=== PATIENT | male | born 1985 | race Caucasian/White ===

== ENCOUNTER → 2023-05-06 13:15 | Outpatient (BNVA) | payer SELFPAY | PROVIDERS: Visit Provider Physician Assistant Medical | DX: Z02.79 Encounter for issue of other medical certificate (principal) ==

== ENCOUNTER 2025-01-18 19:30 | Emergency (ER) | payer BC, SELFPAY ==
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
[2025-01-18 19:33] VITALS: BP 151/88; PULSE 65; RESP 18; TEMP 36.7; O2SAT 96; BMI 27.5
--- NOTE | 2025-01-18 19:41 | ECG_ITS ---
Test Reason : ELECTROCUTED Blood Pressure : */* mmHG Vent. Rate : 67 BPM Atrial Rate : 67 BPM P-R Int : 148 ms QRS Dur : 92 ms QT Int : 400 ms P-R-T Axes : 35 40 26 degrees QTcB Int : 422 ms Normal sinus rhythm with sinus arrhythmia Normal ECG No previous ECGs available Referred By: Sisi Durbin Electronically Signed By: BETH LORWY MD
[2025-01-19] VITALS: BP 145/93; PULSE 68; RESP 18; TEMP 36.4
[2025-01-19] MEDS: Fluorescein Sodium STRIP 1 STRIP EYE-LEFT (02:03)
[2025-01-19] MEDS: Tetracaine HCl/PF 0.5% Oph Sol 4 ML DROPS 1 DROP EYE-BOTH (02:03)
[2025-01-19 02:16] VITALS: BP 145/93; PULSE 68; RESP 18; TEMP 36.4; O2SAT 95
== END 2025-01-19 02:17 | disposition home or self-care (01) ==
PROVIDERS: Emergency Provider Emergency Medicine Emergency Medical Services
DX: T79.4XXA Traumatic shock, initial encounter (principal); W31.89XA Contact with other specified machinery, initial encounter; H53.8 Other visual disturbances; M62.838 Other muscle spasm; M25.511 Pain in right shoulder; M79.601 Pain in right arm; J45.909 Unspecified asthma, uncomplicated; R05.9 Cough, unspecified; K44.9 Diaphragmatic hernia without obstruction or gangrene; Y93.89 Activity, other specified; Y92.59 Other trade areas as the place of occurrence of the external cause; Y99.0 Civilian activity done for income or pay
CPT/HCPCS: 93005; 99283; 99284

== ENCOUNTER → 2025-01-18 19:41 | Outpatient (BNV) | payer BC, SELFPAY | PROVIDERS: Emergency Provider Emergency Medicine Emergency Medical Services; Visit Provider Internal Medicine Cardiovascular Disease | DX: M79.601 Pain in right arm (principal) | CPT/HCPCS: 93010 ==

== ENCOUNTER → 2025-01-21 10:25 | Outpatient (BNVA) | payer OTHER, SELFPAY | PROVIDERS: Visit Provider Physician Assistant Medical | DX: T75.4XXA Electrocution, initial encounter (principal); W86.1XXA Exposure to industrial wiring, appliances and electrical machinery, initial encounter | CPT/HCPCS: 99202 ==

== ENCOUNTER → 2025-02-10 09:57 | Outpatient (BNVA) | payer OTHER, SELFPAY | PROVIDERS: Visit Provider Physician Assistant Medical | DX: M54.2 Cervicalgia (principal); T75.4XXD Electrocution, subsequent encounter; W86.1XXD Exposure to industrial wiring, appliances and electrical machinery, subsequent encounter | CPT/HCPCS: 99213 ==

== ENCOUNTER → 2025-02-17 10:32 | Outpatient (BNVA) | payer OTHER, SELFPAY | PROVIDERS: Visit Provider Physician Assistant Medical | DX: M54.2 Cervicalgia (principal); T75.4XXD Electrocution, subsequent encounter; W86.1XXD Exposure to industrial wiring, appliances and electrical machinery, subsequent encounter | CPT/HCPCS: 99213 ==

== ENCOUNTER 2025-02-27 19:49 | Outpatient (REF) | payer OTHER, SELFPAY ==
--- OUTSIDE RECORDS SUMMARY | 2012-05-05 06:12 | XMS_ITS | Continuity of Care Document ---
Author Organization [facility] [facility] Address [place] [address] [address] [address] Phone Care Team Providers Care Acid Tank Liner Name Role Phone Napoleon Stroud MD Unavailable Unavailable Medications Medication Instructions Dosage Effective Dates (start - stop) Status Comments [place] 5 mg-325 mg tablet take 1 tablet [...] Diagnoses Date Provider Providers Copied on Encounter [employer] [facility], [address] [address], [place], [place], [id number] , [place] [phone] [facility] Block No Information 2 Maximus Bender. [address] [place], [place], [id number], . tel:[phone] Offic/outpt E m Estab Low Comp [employer] [facility], [address] [address], [place], [address] , tel:[phone] [facility] 1st Care rib pain (chief complaint) Rib injury 2 Maximus Bender. [address] [place], [place], [id number], [place]. [phone] [facility], [address] [address], [place], [id number] , tel:[phone] [facility] Family Practice EST (chief complaint) Routine Medical Exam 2 Yoselin Francois. [address] [place], [place], [id number], [place]. [phone] [facility], [address] [address], [place], [place], [id number] , [place] tel:[phone] [facility] Occupational Medicine physical (chief complaint) Screening Viral Dis NecScreening for other specified conditionScree jocelyne for deficiency anemiaNephropa thy screenRoutine medical exam No Information Offic/outpt E m New Mod S [facility], [address] [address], [place], [place], [id number] , tel:[phone] Care STD check (chief complaint) Skin lesion 1 Scot Marcial. [address] [place] [address], [id number], [place]. tel:[phone] Referring Provider: Aniket Velasco, [address] [place] [address], [address] . tel:[phone] Family History Family Member Type Diagnosis Age At Onset No Information Payers Payer name Insurance type Covered green party ID Authoralondraa tilily(s) [facility] [id number] Social History Type Description Quantity Date Captured [...]
--- NOTE | ~2025-02-27 | MR_ITS ---
EXAMINATION: MR BRAIN WITHOUT IV CONTRAST HISTORY: nausea, CHAPIN and vision changes TECHNIQUE: Sagittal T1, and axial T1, FLAIR, T2, gradient echo, and diffusion weighted MR images of the brain were obtained. COMPARISON: There are no prior studies available for comparison. FINDINGS: The pituitary is normal in size. The cerebellar tonsils are normally located. The brain parenchyma is unremarkable, demonstrating normal ding/white differentiation. No foci of abnormal signal intensity are identified. The ventricular system is normal in size and configuration. There is no mass effect or midline shift. No intra or extra-axial fluid collections are identified. There are no foci of restricted diffusion. Normal vascular flow voids are noted in the basilar and carotid arteries. The visualized paranasal sinuses are clear. MR/MR head/brain wo con IMPRESSION: Unremarkable MRI of the brain without contrast. Electronically signed by: Nadir Funes MD 03/01/2025 07:58 AM EDT
--- OUTSIDE RECORDS SUMMARY | 2025-02-27 19:53 | XMS_ITS ---
Author Name [facility] Organization Unknown Care Team Organization Name Specialty Phone Email Start Date End [facility]
--- OUTSIDE RECORDS SUMMARY | 2025-02-27 19:53 | XMS_ITS | Clinical Summary ---
Author Organization [employer] Address [address] [place] [address] 7 [place] [address] Care Team Providers Care Theatre Program Director Name Role Phone Unavailable Primary Care Provider Unavailabl e Encounters Date Type Department Care Team Description 12/24/2024 Telephone [facility] [address] [place], [place] [phone] Sebastian Garcia MD new pt from Last 3 Months Social History Tobacco Use Types Packs/Day Years Used Date Smoking Tobacco: Never Assessed Sex and Gender Information Value Date Recorded Sex Assigned at Not on file Legal Sex Male 3:27 PM EDT Gender Identity Not on file Sexual Orientation Not on file Plan of Treatment Upcoming Encounters Date Type Department Care Team ([facility] st Contact Info) Description 03/26/2025 9:00 AM EDT Office Visit [facility] [address] [place] [address] Farrah Ortiz FNP [address] [place], [place] [phone] Health Maintenance Due Date Last Done Comments Depression Screening 1985 HIV Screening 1985 Lipid Panel 1985 SDOH Screening 1985 Disability Screening 1985 Alcohol/Substance Use Screening 1997 Tobacco Screening 1997 Family Planning (PISQ) 2000 HPV Vaccines (1 - Male 3-dos e series) 2000 Hepatitis C Screening 10/09/2003 DTaP/Tdap/Td Vaccines (1 - Tdap) 2004 Hepatitis B Vaccines (1 of 3 - 19+ 3-dose series) 2004 COVID-19 Vaccine (1 - 2023-2 5 season) 2025 Influenza Vaccine (#1) 2025 Zoster Vaccines (1 of 2) 10/09/2035 RSV Patients and Pa tients Aged 60 years or older (1 - 1-dose 75+ series) 2060 HIB Vaccines Aged Out No longer eligi ble based on patient's age to complete this topic Hepatitis A Vaccines Aged Out No long er eligible based on patient's age to complete this topic IPV Vaccines Aged Out No longer eligi ble based on patient's age to complete this topic Meningococcal B Vaccine Aged Out No l onger eligible based on patient's age to complete this topic Meningococcal Vaccine Aged Out No amita keyonna eligible based on patient's age to complete this topic Pneumococcal Vaccine: Pediat rics (0 to 5 Years) and At-Risk Patients (6 to 49) Years Aged Out No longer eligible b ased on patient's age to complete this topic RSV under 20 months Aged Out No longe r eligible based on patient's age to complete this topic Rotavirus Vaccines Aged Out No longer eligible based on patient's age to complete this topic Insurance [facility] PPO
== END 2025-02-27 19:50 | disposition home or self-care (01) ==
LOC: HO.MRI 19:49
PROVIDERS: Visit Provider Internal Medicine
DX: R11.0 Nausea (principal)
CPT/HCPCS: 70551

== ENCOUNTER → 2025-02-27 20:04 | Outpatient (BNV) | payer OTHER, SELFPAY | PROVIDERS: Visit Provider Radiology Diagnostic Radiology | DX: R51.9 Headache, unspecified (principal); R11.10 Vomiting, unspecified; H53.8 Other visual disturbances | CPT/HCPCS: 70551 ==

== ENCOUNTER → 2025-03-10 10:23 | Outpatient (BNVA) | payer OTHER, SELFPAY | PROVIDERS: Visit Provider Emergency Medicine | DX: T75.4XXD Electrocution, subsequent encounter (principal); W86.1XXD Exposure to industrial wiring, appliances and electrical machinery, subsequent encounter; R42 Dizziness and giddiness | CPT/HCPCS: 99214 ==

== ENCOUNTER 2025-03-29 10:04 | Outpatient (REF) | payer OTHER, SELFPAY ==
--- OUTSIDE RECORDS SUMMARY | 2025-03-26 09:00 | XMS_ITS | Encounter Summary ---
Author Organization [email or web address] Address [address] [facility] [address]t [place] [address] Care Team Providers Care Leasing Representative Name Role Phone Farrah Ortiz Primary Care Provider [phone] Reason for Referral * Imaging (Routine) - Authorized Specialty Diagnoses / Procedures Referred By Contac t Referred To Contact Radiology Diagnoses RUQ pain Procedures US Abdomen Limited Farrah Ortiz FNP [address] [place] [address] Phone: tel: fax: [address] Phone: tel: fax: Referral ID Status Reason Start Date Expiration Date V isits Requested Visits Authorized [id number] Authorized 03/26/2025 03/26/2026 1 1 * Consultation (Routine) - Pending Review Specialty Diagnoses / Procedures Referred By Contac t Referred To Contact General Surgery Diagnoses Umbilical hernia without obstruction and without gangrene Farrah Ortiz FNP [address] [place] [address] Phone: tel: fax: Referral ID Status Reason Start Date Expiration Date Visits Requested Visits Authorized [id number] Pending Review Specialty Services Required 03/26/2025 03/26/2026 1 1 Encounter Details Date Type Department Care Team (Late st Contact Info) Description 03/26/2025 9:00 AM EDT Office Visit [facility]EDS [address] [place] [address] AngelFarrah, ASSIST[employer] [address] [place] [address] Healthcare maintenance (Primary Dx); Umbilical hernia without obstruction and without gangrene; RUQ pain Social History Tobacco Use Types Packs/Day Years Used Date Smoking Tobacco: Never Assessed Depression Answer Date Recorded Patient Health Questionnaire-9 Score 1 03/26/2025 Patient Health Questionnaire-9 Score 1 03/26/2025 Last PHQ-9: Questionnaire Data Not on file 1 Housing Stability Answer Date Recorded What is your housing situation today? I have flower kidd 03/18/[address] you li ve. Do you have problems with any of the following? None of the above 03/18/2025 Food Insecurity Answer Date Recorded Within the past 12 months, y ou worried that your food would run out before you got money to buy more: Never True 03/18/2025 Within the past 12 months,th e food you bought just didn't last and you didn't have enough money to get more: Never True Transportation Answer Date Recorded In the past 12 months, has l ack of transportation kept you from medical appts, meetings, work or from getting things needed for daily living? No 03/18/2025 Utilities Answer Date Recorded In the past 12 months, has t he electric, gas, oil or water company threatened to shut off services in your home? No 03/18/2025 Depression Answer Date Recorded Patient Health Questionnaire-2 Score 1 03/26/2025 Internet Access Answer Date Recorded Internet Access Q1 Yes 03/18/2025 Internet Access Q2 Not on file 03/18/2025 Sex and Gender Information Value Date Recorded Sex Assigned at Male 03/26/2025 8:44 AM EDT Legal Sex Male 3:27 PM EDT Gender Identity Male 03/26/2025 8:44 AM EDT Sexual Orientation Straight 03/26/2025 8: 44 AM EDT documented as of this encounter Last Filed Vital Signs Vital Sign Reading Time Taken Comments Blood Pressure 130/89 03/26/2025 8:59 AM EDT Pulse 76 03/26/2025 8:59 AM EDT Temperature 37.2 C (98.9 F) 03/26/2025 8:59 AM EDT Respiratory Rate 20 03/26/2025 8:59 AM EDT Oxygen Saturation 98% 03/26/2025 8:59 AM EDT Inhaled Oxygen Concentration - - Weight 96.1 kg (211 lb 12.8 oz) 03/26/2025 8:59 AM EDT Height 184 cm (6' 0.44 ) 03/26/2025 8:59 AM EDT Body Mass Index 28.38 03/26/2025 8:59 AM EDT documented in this encounter Functional Status * Over the past 2 weeks, how often have you been bothered by any of the following problems? Question Answer Date of Assessment Author Patient Health Questionnaire-2 Score 1 08/2024 9:01 AM EDT Go Romero [place] * Little interest or pleasure in doing things Answer Date of Assessment Author Several days 03/26/2025 9:01 AM EDT Go Romero MA * Feeling down, depressed, or hopeless Answer Date of Assessment Author Not at all 03/26/2025 9:01 AM EDT Go Romero MA * Trouble falling or staying asleep, or sleeping too much Answer Date of Assessment Author Not at all 03/26/2025 9:01 AM EDT Go Romero MA * Feeling tired or having little energy Answer Date of Assessment Author Not at all 03/26/2025 9:01 AM EDT Go Romero MA * Poor appetite or overeating Answer Date of Assessment Author Not at all 03/26/2025 9:01 AM EDT Go Romeor [place] * Feeling bad about yourself - or that you are a failure or have let yourself or your family down Answer Date of Assessment Author Not at all 03/26/2025 9:01 AM EDT Go Romero [place] * Trouble concentrating on things, such as reading the newspaper or watching television Answer Date of Assessment Author Not at all 03/26/2025 9:01 AM EDT Go Romero [place] * Moving or speaking so slowly that other people could have noticed? Or the opposite - being so fidgety or restless that you have been moving around a lot more than usual. Answer Date of Assessment Author Not at all 03/26/2025 9:01 AM Go Mcneill MA * Thoughts that you would be better off or hurting yourself in some way Answer Date of Assessment Author Not at all 03/26/2025 9:01 AM Go Mcneill MA * Patient Health Questionnaire-9 Score Answer Date of Assessment Author 1 03/26/2025 9:01 AM Go Mcneill MA * How difficult have these problems made it for you to do your work, take care of things at home, or get along with other people? Answer Date of Assessment Author Somewhat difficult 03/26/2025 9:01 AM Go Dnuham [place] documented as of this encounter Plan of Treatment Upcoming Encounters Date Type Department Care Team (Late st Contact Info) Description 05/10/2025 9:15 AM EST Office Visit [facility] [address] [place] [address] Farrah Ortiz, [employer] [address] [place] [address] Scheduled Orders Name Type Priority Associated Diagnoses Orde r Schedule Lipid Panel, Standard Lab Routine Healthcare maintenance Expected: 03/26/2025 (Approximate), Expires: 03/26/2026 Hemoglobin A1c Lab Routine Healthcare maintenance Expected: 03/26/2025 (Approximate), Expires: 03/26/2026 TSH with Reflex to Free T4 Lab Routine Healthcare maintenance Expected: 03/26/2025 (Approximate), Expires: 03/26/2026 Comprehensive Metabolic Panel Lab Routine Healthcare maintenance Expected: 03/26/2025 (Approximate), Expires: 03/26/2026 CBC auto differential Lab Routine Healthcare maintenance Expected: 03/26/2025, Expires: 03/26/2026 Hepatitis C Viral RNA, Quantitative, Real-Time PCR Lab Routine Healthcare maintenance Expected: 03/26/2025 (Approximate), Expires: 03/26/2026 RPR (Monitor) with Reflex to Titer Lab Routine Healthcare maintenance Expected: 03/26/2025 (Approximate), Expires: 03/26/2026 HIV-1/2 Antigen and Antibodies, Fourth Generation, with Reflexes Lab Routine Healthcare maintenance Expected: 03/26/2025 (Approximate), Expires: 03/26/2026 Chlamydia/Trichomonas/Nei sseria gonorrhoeae, PCR, Urine Lab Routine Healthcare maintenance Expected: 03/26/2025 (Approximate), Expires: 03/26/2026 Urinalysis with reflex microscopic Lab Routine Healthcare maintenance Expected: 03/26/2025, Expires: 03/26/2026 US Abdomen Limited Imaging Routine RUQ pain Expected: 03/26/2025, Expires: 03/26/2026 Scheduled Referrals Name Type Priority Associated Diagnoses Orde r Schedule Referral to General Surgery Outpatient Referral Routine Umbilical hernia without obstruction and without gangrene Expected: 03/26/2025 (Approximate), Expires: 03/26/2026 documented as of this encounter Visit Diagnoses Diagnosis Healthcare maintenance- Primary Umbilical hernia without obstruction and without gangrene RUQ pain Abdominal pain, right upper quadrant documented in this encounter Additional Health Concerns Assessment Noted Time PHQ-9 Depression Total Score: 1 03/26/20 25 9:01 AM EDT documented as of this encounter Care Teams Leasing Representative Relationship Specialty Start Date End Date Farrah Ortiz FNP [address] [place] [id number] PCP - General Family Medicine 03/26/25 documented as of this encounter
--- OUTSIDE RECORDS SUMMARY | 2025-03-29 11:44 | XMS_ITS | Encounter Summary ---
Author Organization [employer] Address [address] [place] [address] Care Team Providers Care Enterprise Applications Manager Name Role Phone Unavailable Primary Care Provider Unavailabl e Reason for Visit * Reason Onset Date Comments Chart Prep 03/25/2025 Encounter Details Date Type Department Care Team ([facility] st Contact Info) Description 03/25/2025 Telephone [facility] [address] [place], [place] [phone] Farrah Ortiz FNP [address] [place], [place] [phone] Chart Prep Social History Tobacco Use Types Packs/Day Years [...] AM EDT documented as of this encounter Miscellaneous Notes * Telephone Encounter - Madison Newby [place] - 03/25/2025 2:25 PM EDT Chart Prep Labs: not applicable Images: not applicable Referrals: not applicable Vaccines due: due Screenings: STI screening Overdue care gaps: SBIRT, SDOH, PHQ-9, Disability screen, and Tobacco documented in this encounter Plan of Treatment Upcoming Encounters Date Type Department Care Team (Late st Contact Info) Description 05/10/2025 9:15 AM EST Office Visit [facility] [address] [place] [address] Farrah Ortiz FNP [address] [place] [address] documented as of this encounter Visit Diagnoses Not on filedocumented in this encounter
--- OUTSIDE RECORDS SUMMARY | 2025-03-29 11:44 | XMS_ITS | Clinical Summary ---
Author Organization [employer] Address [address] [facility] [address]t [place] [address] Care Team Providers Care Gear Generator Set Up Operator Name Role Phone Farrah Ortiz Primary Care Provider [phone] Medications gabapentin (Neurontin) 100 MG capsule TAKE 1 CAPSULE BY MOUTH EVERY NIGHT AT BEDTIME FOR 1 WEEK THEN MAY INCREASE TO 2 EVERY NIGHT AT BEDTIME THEN MAX OF 3 CAPSULES AFTER 02/10/2025 Active indomethacin (Indocin) 25 MG capsule TAKE 1 CAPSULE BY MOUTH TWICE DAILY WITH FOOD OR MILK NEEDED FOR MODERATE PAIN 03/10/2025 Active Encounters Date Type Department Care Team Description 03/26/2025 9:00 AM EDT Office Visit [facility] [address] [place], [place] [phone] Farrah Ortiz FNP Healthcare maintenance (Primary Dx); Umbilical hernia without obstruction and without gangrene; RUQ pain 03/26/2025 Travel 03/25/2025 Telephone [facility] [address] [place] [address] Farrah Ortiz FNP Chart Prep 03/18/2025 Patient Outreach [facility] [address] [place], [place] [phone] Sebastian Garcia MD Pre-visit Planning (SDOH screening negative and Tobacco screening negative) from Last 3 Months Social History Tobacco [...] Orientation Straight 03/26/2025 8: 44 AM EDT Last Filed Vital Signs Vital Sign Reading Time Taken Comments Blood Pressure 130/89 03/26/2025 8:59 AM EDT Pulse 76 03/26/2025 8:59 AM EDT Temperature 37.2 C (98.9 F) 03/26/2025 8:59 AM EDT Respiratory Rate 20 03/26/2025 8:5 9 AM EDT Oxygen Saturation 98% 03/26/2025 8:59 AM EDT Inhaled Oxygen Concentration - - Weight 96.1 kg (211 lb 12.8 oz) 03/26/2025 8:59 AM EDT Height 184 cm (6' 0.44 ) 03/26/2025 8:59 AM EDT Body Mass Index 28.38 03/26/2025 8:59 AM EDT Plan of Treatment Upcoming Encounters Date Type Department Care Team (Late st Contact Info) Description 05/10/2025 9:15 AM EST Office Visit [facility] [address] [place] [address] Farrah Ortiz, KORI [address] [place] [address] Health Maintenance Due Date Last Done Comments HIV Screening 1985 Lipid Panel 1985 Tobacco Screening 1997 Family Planning (PISQ) 2000 HPV Vaccines (1 - Male 3-dos e series) 2000 Hepatitis C Screening 10/09/2003 DTaP/Tdap/Td Vaccines (1 - Tdap) 2004 Hepatitis B Vaccines (1 of 3 - 19+ 3-dose series) 2004 COVID-19 Vaccine (1 - 2023-2 5 season) 2025 Influenza Vaccine (#1) 2025 Alcohol/Substance Use Screening 03/26/2026 03/26/2025 Depression Screening 03/26/2026 03/26/2025, 03/26/2025 Disability Screening 03/26/2026 03/26/2025 SDOH Screening 03/26/2026 03/26/2025 Zoster Vaccines (1 of 2) 10/09/2035 RSV Patients and Patients Aged 60 years or older (1 - [...] age to complete this topic Pneumococcal Vaccine: Pediatrics (0 to 5 Years) and At-Risk Patients (6 to 49) Years Aged Out No longer eligible b ased on patient's age to complete this topic RSV under 20 months Aged Out No longe r eligible based on patient's age to complete this topic Rotavirus Vaccines Aged Out No longer eligible based on patient's age to complete this topic Insurance [employer] PPO Care Teams Gear Generator Set Up Operator Relationship Specialty Start Date End Date Farrah Ortiz FNP [address] [place] [address] [place] [id number] PCP - General Family Medicine 03/26/25
--- OUTSIDE RECORDS SUMMARY | 2025-03-29 11:44 | XMS_ITS | Encounter Summary ---
Author Organization [employer] Address [address] [place] [address] Care Team Providers Care Investigative Shopper Name Role Phone Farrah Ortiz KORI Primary Care Provider [phone] Encounter Details Date Type Department Care Team (Latest Contact Info) Description 03/26/2025 Travel Social History Tobacco Use Types Packs/Day Years Used Date Smoking Tobacco: Never Assessed Depression Answer Date Recorded Patient Health Questionnaire-9 Score 1 03/26/2025 Patient Health Questionnaire-9 Score 1 03/26/2025 Last PHQ-9: Questionnaire Data Not on file 1 Housing Stability Answer Date Recorded What is your housing situation today? I have flower sing 03/18/[address] you li [...] AM EDT documented as of this encounter Functional Status * Over the [...] AM EDT Go Romero MA * Feeling bad about yourself - [...] 9:01 AM EDT Go Romero MA * Thoughts that you would be better off or hurting yourself in some way Answer Date of Assessment Author Not at all 03/26/2025 9:01 AM EDT Go Romero [place] * Patient Health Questionnaire-9 Score Answer Date of Assessment Author 1 03/26/2025 9:01 AM EDT Go Romero MA * How difficult have these problems made it for you to do your work, take care of things at home, or get along with other people? Answer Date of Assessment Author Somewhat difficult 03/26/2025 9:01 AM EDT Go Degroot [place] documented as of this encounter Plan of Treatment Upcoming Encounters Date Type Department Care Team (Late st Contact Info) Description 05/10/2025 9:15 AM EST Office Visit [facility] [address] [place] [address] Farrah Ortiz FNP [address] [place] [address] documented as of this encounter Visit Diagnoses Not on filedocumented in this encounter Additional Health Concerns Assessment Noted Time PHQ-9 Depression Total Score: 1 03/26/20 9:01 AM EDT documented as of this encounter Care Teams Investigative Shopper Relationship Specialty Start Date End Date Farrah Ortiz FNP [address] [place] [address] PCP - General Family Medicine 03/26/25 documented as of this encounter
[2025-03-29 14:42] LABS: MANUAL DIFF FLAG NO
[2025-03-29 14:52] LABS: Hematocrit 45.0 % (42.0-52.0); Hemoglobin 15.3 g/dl (14.0-18.0); Imm Gran Abs Auto 0.02 X10*3/uL (0.00-0.03); Imm Gran Pct Auto 0.3 % (0.0-0.4); Lymphocytes Absolute Auto 3.1 X10*3/uL (1.2-4.9); Mean Corpuscular HGB Conc 34.0 g/dl (31.0-36.0); Mean Corpuscular Hemoglobin 27.8 pg (27.0-33.0); Mean Corpuscular Volume 81.8 fL (80.0-98.0); NRBC Abs Auto 0.000 X10*3/uL (0.0-0.012); NRBC Pct Auto 0.0 /100WBC (0.0-0.2); Platelet Count 340 X10*3/uL (160-400); Red Blood Count 5.50 X10*6/uL (4.60-5.80); White Blood Count 7.1 X10*3/uL (4.8-10.8)
[2025-03-29 14:54] LABS: Appearance Urine Clear; Glucose Urine UA Negative (Negative); PH 5.5 (5.0-9.0); Specific Gravity - Urine 1.015 (1.005-1.025)
[2025-03-29 15:16] LABS: Hemoglobin A1C 152.1238 umol/L
[2025-03-29 15:21] LABS: Alanine Aminotransferase 30 U/L (0-40); Albumin Level 4.6 g/dL (3.5-5.0); Alkaline Phosphatase 55 U/L (39-117); Anion Gap 9 (12-20); Aspartate Amino Transferase 30 U/L (5-37); Blood Urea Nitrogen 13 mg/dL (9-16); Calcium 9.5 mg/dL (8.4-10.2); Carbon Dioxide 26 mmol/L (22-29); Chloride 106 mmol/L (96-108); Cholesterol 249 mg/dL (<200); Estimated Glomerular Filt Rate > 60; HDL Cholesterol 31 mg/dL (>40); Potassium 4.2 mmol/L (3.3-5.1); Sodium 137 mmol/L (135-145); Total Protein 7.5 g/dL (6.5-8.0); Triglycerides 273 mg/dL (<150)
[2025-03-29 16:43] LABS: CT PCR Urine NOT DETECTED (Not Detect.); NG PCR Urine NOT DETECTED (Not Detect.)
[2025-03-30 08:10] LABS: HIV Num 1 0.04 S/CO (0.00-0.99)
[2025-03-31 20:08] LABS: HCV Log PCR <1.18 NOT DETECTED Log IU/mL (NOT DETECTED); HepC Viral Load <15 NOT DETECTED IU/mL (NOT DETECTED)
== END 2025-03-29 10:05 | disposition home or self-care (01) ==
LOC: HO.CHCLDS 10:04
PROVIDERS: Visit Provider Registered Nurse
DX: Z00.00 Encounter for general adult medical examination without abnormal findings (principal); Z13.6 Encounter for screening for cardiovascular disorders; Z13.1 Encounter for screening for diabetes mellitus; Z11.4 Encounter for screening for human immunodeficiency virus [HIV]
CPT/HCPCS: 80053; 80061; 81003; 83036; 84443; 85025; 86592; 87389; 87491; 87522; 87591

== ENCOUNTER → 2025-04-08 09:44 | Outpatient (BNVA) | payer OTHER, SELFPAY | PROVIDERS: PCP Registered Nurse; Visit Provider Emergency Medicine | DX: T75.4XXD Electrocution, subsequent encounter (principal); W86.1XXD Exposure to industrial wiring, appliances and electrical machinery, subsequent encounter | CPT/HCPCS: 99213 ==

== ENCOUNTER → 2025-04-12 08:31 | Outpatient (BNVA) | payer SELFPAY | PROVIDERS: PCP Registered Nurse; Visit Provider Internal Medicine | DX: Z02.79 Encounter for issue of other medical certificate (principal) ==

== ENCOUNTER 2025-05-07 08:02 | Outpatient (REF) | payer BC, SELFPAY ==
--- OUTSIDE RECORDS SUMMARY | 2012-05-05 05:12 | XMS_ITS | Continuity of Care Document ---
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 [address] [place], [place], [id number], . tel:[phone] Offic/outpt E m Estab Low Comp [employer] [facility], [address] [address], [place], [id number] , tel:[phone] [facility] 1st Care rib pain (chief complaint) Rib injury 2 Maximus Bender. [address] [place], [place], [id number], [place]. [phone] [facility], [address] [address], [place], [address] , tel:[phone] [facility] Family Practice EST (chief complaint) Routine Medical Exam 2 Yoselin Francois. [address] [place], [place], [id number], [place]. [phone] [facility], [address] [address], [place], [place], [address] , [place] tel:[phone] [facility] Occupational Medicine physical (chief complaint) Screening Viral Dis NecScreening for other specified conditionScree jocelyne for deficiency anemiaNephropa thy screenRoutine medical exam No Information Offic/outpt E m New Mod S [facility], [address] [address], [place], [place], [id number] , tel:[phone] Care STD check (chief complaint) Skin lesion 1 Scot Marcial. [address] [place] [address], [id number], [place]. tel:[phone] Referring Provider: Aniket Velasco, [address] [place] [address], [address] . tel:[phone] Family History Family Member Type Diagnosis Age At Onset No Information Payers Payer name Insurance type Covered constitution party ID Authoralondraa tilily(s) [facility] [id number] Social History Type Description Quantity Date Captured [...]
--- NOTE | ~2025-05-07 | US_ITS ---
CLINICAL HISTORY: ruq pain US limited to right upper quadrant Comparison: None Findings: Liver is normal size and reveals homogeneous echotexture. No focal hepatic lesions. No intrahepatic ductal dilatation. Right lobe length measures 15.2 cm. Portal vein reveals hepatopetal flow. Common bile duct measures 2 mm. Gallbladder appears unremarkable. No sonographic Rollins's sign. Right kidney is normal texture. No hydronephrosis. Right renal length is 12.2 cm. Impression: Unremarkable right upper quadrant ultrasound. This document has been electronically signed by: Jaime Christianson MD on 05/07/2025 20:31:29
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
== END 2025-05-07 08:03 | disposition home or self-care (01) ==
LOC: HO.HMGCX 08:02
PROVIDERS: PCP Registered Nurse; Visit Provider Registered Nurse
DX: R10.11 Right upper quadrant pain (principal)
CPT/HCPCS: 76705

== ENCOUNTER → 2025-05-07 08:08 | Outpatient (BNV) | payer BC, SELFPAY | PROVIDERS: PCP Registered Nurse; Visit Provider Radiology Diagnostic Radiology | DX: R10.11 Right upper quadrant pain (principal) | CPT/HCPCS: 76705 ==

== ENCOUNTER 2025-05-10 09:28 | Outpatient (AMB) | payer BC, SELFPAY ==
[2025-05-10 09:29] VITALS: BP 126/80; PULSE 82; BMI 28.2
--- NOTE | 2025-05-10 09:29 | MHC.OFFVIS ---
Vital Signs 05/10/25 09:29 Height 6 ft 1 in Weight 214 lb BMI 28.2 BP 126/80 Blood Pressure Location Rt brachial Position Sitting Pulse 82 Intake Visit Reasons: umbilical hernia Intake Note: Patient referred by pcp Farrah SHEIKH for evaluation of Umbilical hernia. Patient c/o: bulging out but is able to push it back in. On and off pain to the right side. No imaging Training And Development Head Required: No Accompanied by: Self / Same As Patient Allergies No Known Allergies Allergy (Verified 05/10/25 09:34) Medication List - Last Reconciled 05/10/25 by Milton Berry MD albuterol sulfate 90 mcg/actuation 2 puffs inhalation Q4-6H PRN cyclobenzaprine 10 mg PO TID PRN famotidine (Pepcid) 20 mg PO DAILY gabapentin 200 mg (2 x 100 mg) PO BEDTIME PRN indomethacin 50 mg PO TID PRN indomethacin 25 mg PO BID PRN indomethacin 25 mg PO BID PRN HPI Comments Details: The patient is a 39-year-old male presenting with concerns regarding an ventral periumbilical hernia. 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 The patient reports being able to manually reduce the hernia, feeling a palpable defect in the abdominal wall. 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 The patient has no history of prior abdominal surgeries, only having undergone oral surgery in the past. He denies any history of diabetes or other conditions that might impair healing. [facility] Medical History (Updated 05/10/25 @ 09:51 by Milton Berry MD) Nerve pain Surgical History (Updated 05/10/25 @ 09:36 by SREEDHAR Benton) Hx of oral surgery Review of Systems Narrative - Gastrointestinal: Reports occasional discomfort in the inguinal region, denies nausea or vomiting. - Musculoskeletal: Denies any other musculoskeletal pain or limitations. - Endocrine: Denies history of diabetes. Neuro Reports Abnormal speech present Physical Exam Vital Signs: Last Vital Signs Pulse 82 05/10/25 09:29 BP 126/80 05/10/25 09:29 BMI result Body Mass Index 28.2 Const General: cooperative, healthy appearing and comfortable Orientation/consciousness: oriented to person, oriented to place and oriented to time HEENT Head: Yes normal to inspection, Yes normocephalic and Yes atraumatic Eyes General: appearance normal, both eyes and all related structures Neck Neck: Yes normal visual inspection, Yes full ROM and Yes no lymphadenopathy Chest Chest palpation & inspection: normal inspection of the chest and normal palpation of entire chest wall Resp Effort & Inspection: normal respiratory effort, able to speak in complete sentences and abnormal respiratory pattern Cardio Rate: regular rate Rhythm: regular rhythm GI Other: Small periumbilical ventral hernia with approximately 2-3 cm fascial defect. Slightly tender to palpation but easily reducible. No corresponding scar. No evidence of hepatosplenomegaly. General: Yes no CVA tenderness Back/Spine/Pelvis Back: no CVA tenderness Cervical Spine: normal cervical lordosis Thoracic/Lumbar Spine: thoracic and lumbar spine normal to inspection Neuro General: oriented to person, oriented to place and oriented to time Cranial nerves: Yes CN's II-XII intact bilaterally Cognition (Neuro): normal cognition Speech: Abnormal speech present Gait exam (Neuro): Normal gait present Extrem General: Yes normal to inspection Assessment & Plan Assessment & Plan (1) Ventral hernia: Code(s): K43.9 - Ventral hernia without obstruction or gangrene Category: Medical Plan The patient is advised to undergo laparoscopic hernia repair to prevent further enlargement and complications associated with the hernia. The procedure involves small incisions and the use of a mesh to reinforce the abdominal wall, which will integrate with the tissue over time. Potential risks such as bleeding, infection, and recurrence were discussed, and the patient was deemed a good candidate for surgery due to the absence of complicating factors like diabetes. I discussed with the patient the diagnosis of an ventral hernia and the recommended surgical intervention using laparoscopic techniques. We reviewed the procedure, including the use of a mesh to repair the defect, and the potential risks such as bleeding, infection, and recurrence. The patient was informed that he is a good candidate for surgery given his overall health status, and he expressed understanding and agreement with the plan. Coding Level of Care Code New Pt Level 3 (65059) Diagnoses Ventral hernia K43.9 Time Spent (min) 30 Comment Patient visit and coordination of care
== END 2025-05-10 09:44 | disposition home or self-care (01) ==
LOC: HO.HGS 09:28
PROVIDERS: Visit Provider Surgery
DX: K43.9 Ventral hernia without obstruction or gangrene (principal)
CPT/HCPCS: 99204

== ENCOUNTER 2025-05-14 11:59 | Outpatient (REF) | payer BC, SELFPAY ==
--- OUTSIDE RECORDS SUMMARY | 2012-05-05 05:12 | XMS_ITS | Continuity of Care Document ---
Author Organization [employer] [facility] [employer] [facility] Address [place] [address] [address] [address] Phone Care Team Providers Care Strapper Name Role Phone Napoleon Stroud MD Unavailable Unavailable Medications Medication Instructions Dosage Effective Dates (start - stop) Status Comments [place] 5 mg-325 mg tablet take 1 tablet by oral route every 6 hours as needed for pain - Active Naprosyn 500 mg tablet take 1 tablet (500MG) by ORAL route 2 times every day for 14 days with food 500 MG - No Longer Active Procedures Procedure Date Offic/outpt E m Estab Low Comp THER/PROPH/DIAG INJ, SC/IM Inj Toradol Per 15mg Void Bus Enc Void Bus Enc Offic/outpt E m New Mod S THER/PROPH/DIAG INJ, SC/IM Inj Rocephin Ceftriaxone Advance Directives Directive Yes / No Effective Date File Name No Information Encounters Encounter Description Practice Location Reason(s) For Visit Diagnoses Date Provider Providers Copied on Encounter [employer] [facility], [address] [address], [place], [place], [id number] , [place] [phone] [facility] Block No Information 2 Maximus Bender. [address], [place], [id number], . tel:[phone] Offic/outpt E m Estab Low Comp [facility], [address] [address], [place], [id number] , tel:[phone] [facility] 1st Care rib pain (chief complaint) Rib injury 2 Maximus Bender. [address], [place], [id number], [place]. [phone] [facility], [address] [address], [place], [id number] , tel:[phone] [facility] Family Practice EST (chief complaint) Routine Medical Exam 2 Yoselin Francois. [address], [place], [id number], [place]. [phone] [facility], [address] [address], [place], [place], [id number] , [place] tel:[phone] [facility] Occupational Medicine physical (chief complaint) Screening Viral Dis NecScreening for other specified conditionScree jocelyne for deficiency anemiaNephropa thy screenRoutine medical exam No Information Offic/outpt E m New Mod S [facility], [address] [address], [place], [place], [id number] , tel:[phone] Care STD check (chief complaint) Skin lesion 1 Scot [address]cial. [address] [place] [address], [id number], [place]. tel:[phone] Referring Provider: Aniket Velasco, [address] [place] [address], [address] . tel:[phone] Family History Family Member Type Diagnosis Age At Onset No Information Payers Payer name Insurance type Covered libertarian ID Authoralondraa tilily(s) [facility]UST [id number] Social History Type Description Quantity Date Captured Comments Sex Male Smoking Status No Information Chief Complaint And Reason For Visit No Information Reason For Referral Reason For Referral No Information Plan Of Treatment Date Type Action Status Referral Ordered: Ribs Unilateral; With PA Chest X-ray Left ordered History Of Present Illness Encounter Date Complaint History Of Prese nt Illness No Information Functional Status Date Functional Assessmen t No Information Instructions Date Instruction Additional Infor mation No Information Assessments Type Assessment Date No Information Patient Care Teams Name Effective Dates (start - stop) Status Members No Information
--- OUTSIDE RECORDS SUMMARY | 2025-05-14 11:00 | XMS_ITS | Encounter Summary ---
Author Organization [employer] Address [address] [facility] [address] [place] [address] Care Team Providers Care Hr Assistant Name Role Phone Farrah Ortiz Primary Care Provider [phone] Reason for Visit * Reason Comments follow up Encounter Details Date Type Department Care Team ([facility] Contact Info) Description 05/14/2025 11:00 AM EST Office Visit [facility] [address] [place], [place] [phone] Farrah Ortiz FNP [address] [place], [place] [phone] Hematuria, unspecified type (Primary Dx); Healthcare maintenance Social History Tobacco Use Types Packs/Day Years [...] Sign Reading Time Taken Comments Blood Pressure 114/77 05/14/2025 10:59 AM EST Pulse 85 05/14/2025 10:59 AM EST Temperature 36.5 C (97.7 F) 05/14/2025 10:59 AM EST Respiratory Rate 18 05/14/2025 10:59 AM EST Oxygen Saturation - - Inhaled Oxygen Concentration - - Weight 98 kg (216 lb) 05/14/2025 10:59 AM EST Height 184.2 cm (6' 0.5 ) 05/14/2025 10:59 AM ES T Body Mass Index 28.89 05/14/2025 10:59 AM EST documented in this encounter Plan of Treatment Scheduled Orders Name Type Priority Associated Diagnoses Orde r Schedule Urinalysis Complete Lab Routine Hematuria, unspecified type Expected: 05/14/2025 (Approximate), Expires: 05/14/2026 Lipid Panel, Standard Lab Routine Healthcare maintenance Expected: 05/14/2025 (Approximate), Expires: 05/14/2026 Hemoglobin A1c Lab Routine Healthcare maintenance Expected: 05/14/2025 (Approximate), Expires: 05/14/2026 Hepatic Function Panel Lab Routine Healthcare maintenance Expected: 05/14/2025 (Approximate), Expires: 05/14/2026 documented as of this encounter Visit Diagnoses Diagnosis Hematuria, unspecified type- Primary Healthcare maintenance documented in this encounter Additional Health Concerns Assessment Noted Time PHQ-9 Depression Total Score: 1 03/26/20 9:01 AM EDT documented as of this encounter Care Teams Hr Assistant Relationship Specialty Start Date End Date Farrah Ortiz FNP [address] [place] [address] PCP - General Family Medicine 03/26/25 documented as of this encounter
--- OUTSIDE RECORDS SUMMARY | 2025-05-14 12:39 | XMS_ITS | Data Portability ---
Author Organization [place] - [facility], [id number] Address [address] [place] [address] Assessment No assessment recorded. Plan of Treatment Reminders Order Date Submit Date Provider Last Modified By Organization Details Last Modified Time Details Appointments None recorded. Lab None recorded. Referral pulmonologi st referral 2023 024 [email or web address] Not available 4 08:31:28 Procedures None recorded. Surgeries None recorded. Imaging XR, chest, 2 view 2023 024 [email or web address] [facility], [address] [place], [address], 4 08:25:49 XR, foot, 3 or more view 2021 022 LE[facility], [address] [place], [address], 2 14:02:47 Medication Orders albuterol sulfate HFA 90 mcg/actuati on aerosol inhaler 2023 024 [id number], [address] [place], [address], 4 17:06:57 Patient TargetsNo targets recorded. Patient Instructions Encounter Date Encounter Id Patient Instructions Last Modified By Organization Details Last Modified Time 06/04/2022 [id number] foot sprain: car e instructions [email or web address] Not available 06/04/2022 13:16:30 09/13/2023 [id number] shortness of breath: care instructions [email or web address] Not available 09/13/2023 17:06:55 Reason for Referral [employer] Referral for R eactive airway disease Referring Physician: Fish Abdi, Urgent Care, Encounter Date: 09/13/2023 Results Created Date Observation Date Name Description Value Unit Range Abnormal Flag Note LastModifiedBy Organization Detail LastModifiedTime 06/04/2006/04/2022 XR, foot, 3 or more view No observ ation record ed. [email or web address] [facility] [address] [facility] [place], [address], 06/04/2022 14:21:48 Result Notes None recorded. Problems Name Problem SNOMED Code Status Onset Date Resolution Date Notes Provider Name and Address Organization Details Recorded Time No current problems or disability [id number] Active ZEUS nixon, [place] - [facility] 2 12:23:02 Poisoning caused by rattlesnake venom [id number] Completed 202106/04/2022 ZEUS nixon, [place] - [facility] 2 12:22:38 Problem Notes None recorded. Procedures Surgical History Date Name Laterality Status Provider Name and Address Organization Details Recorded Time 2 OC-DOT PHYSICAL completed HARPAL MORALES PA - [facility] 06/08/2022 15:56:27 2 OC-DOT PHYSICAL completed ZEUS TRAN PA - [facility] 06/04/2022 11:57:34 3 Jaw arthroscopy/s urgery completed ZEUS TRNA [place] - [facility] 06/04/2022 12:21:05 Imaging Results None recorded. Procedure Notes None recorded. Medical Equipment None Reported. Allergies No known drug allergies Medications Name Sig Start Date Stop Date Status Note LastModified by Organization Details LastModified Time albuterol sulfate HFA 90 mcg/actuati on aerosol inhaler INHALE 2 PUFFS EVERY 4 HOURS BY INHALATION ROUTE NEEDED active Not Available Not Available No t Available Vitals Date Recorded Body height Body mass index (BMI) Body weight Pain severity - 0-10 verbal numeric rating [Score] - Reported Respiratory rate Body temperature Oxygen saturation Heart rate Systolic And Diastolic Provider Name and Address Organization Details Last Updated DateTime 4 182.88 cm 29.2 kg/m2 18026.3 6 g 0 18 /min 97.3 [degF] 96 % 74 /min 120/80 mm[Hg] MARTINE WANG [place] - [facility] 4 16:49:13 Date Recorded Body height Body mass index (BMI) Body weight Pain severity - 0-10 verbal numeric rating [Score] - Reported Body temperature Oxygen saturation Heart rate Respiratory rate Body height Systolic And Diastolic Provider Name and Address Organization Details Last Updated DateTime 2 185.42 cm 29.7 kg/m2 151816. 28 g 9 97 [degF] 100 % 86 /min 20 /min 185.42 cm 123/81 mm[Hg] ZEUS TOMLINTERRY [place] - [facility] 2 12:29:11 Social History Question Answer Notes LastModified by Organizat ion Details LastModified Time Tobacco Smoking Status Former Smoker ZEUS CRRAGHAV null, [place] - [facility] 06/04/2022 12:26:57 When Did You Quit Smoking? 16+yearssinc elastcigaret te Information not available 06/04/2022 What Is Your Relationship Status? Information not available 06/04/2022 Have You Recently Traveled Abroad? No Information not available 06/04/2022 Sex: Unknown Functional Status Question Answer Note LastModified by Organizat ion Details LastModified Time Do you use any illicit or recreational drugs? No Information not available 06/04/2022 Do you or have you ever used any other forms of tobacco or nicotine? No Information not available 06/04/2022 What is your level of alcohol consumption? None Information not available 06/04/2022 Mental Status None recorded. Family History Relationship Description Onset Age of this Age Resolved Age Notes LastModified by Organization Details LastModified Time Father Hypertensive disorder [email or web address] Not available 06/04 12:25:12 Maternal Grandfather Hypercholest erolemia [email or web address] Not available 06/04 12:26:04 Maternal Grandfather Acute stroke [email or web address] Not availabl e 06/04/2022 12:26:22 Medical History No medical history recorded. Past Encounters Encounter ID Performer Location Encounter Start Date Encounter Closed Date Diagnosis/Indication Diagnosis SNOMED-CT Code Diagnosis ICD10 Code Diagnosis IMO Codes Diagnosis Note [id number] [address] [place] [address] 09/04/2017 12:13:58 09/04/2017 12:46:01 [id number] [place] [address] 08/22/2018 15:44:35 08/22/2018 16:20:40 [id number] [address] [facility] [address] [address] [place] [address] 06/30/2020 09:46:00 06/30/2020 12:34:52 [id number] [address] [place] [address] 09/20/2017 16:54:50 09/20/2017 17:32:00 [id number] GIORGIO CRUMP MD [address] [place] [address] 06/04/2022 10:07:44 06/04/2022 13:26:44 Patient not examined 105160825 Z53.21 [id number] GIORGIO CRUMP MD [address] [facility] [address] [place] [address] 06/04/2022 10:14:53 06/04/2022 13:18:29 Pain in left foot 7994882673 06018 M79.672 Sprain of left foot 1183 116316 5641464 S93.602A As we discussed your x-ray doesnotsho w a fracture. All of our x-rays are over-read by a radiologis t. When we get that reading back, it they see something significan tly different, we will call you and let you know. If your injury fails to improve, you should have a repeat X-ray in 10-14 days. On occasion, a fracture may not be apparent on the initial X-ray, but will show up in 10-14 days as the bone begins to heal. You can take ibuprofen for your symptoms as directed on the bottle. Make sure to take it with food. Be careful about how much you take in one day. Taking more than the recommende d amount can cause stomach and kidney problems. You can take acetaminop hen (generic Tylenol) as directed on the bottle. Be careful about how much you take in one day. Taking more than the recommende d amount can cause liver problems. If your symptoms worsen or persist you should be re-evaluat ed. Go to the Emergency Department immediatel y if your symptoms worsen or if you develop new symptoms that concern you. 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 Health Concerns Section Related Observation LastModified by Organization Detai ls LastModified Time None Recorded Concern Status LastModified by Organization Details LastModified Time None Recorded Advance Directives Directive None Recorded Payers Insurance Date Sequence Insurance Name Policy Number Policy Gregorio Covered Member ID Gregorio Member ID Guarantor Name 08/22/2024 1 [facility] [id number] Corbin Yelensky [id number] Corbin Yelensky 08/22/2024 DO NOT USE Corbin Yelensky CORBIN CORBIN Corbin Yelensky 09/13/2023 1 [facility] Corbin Yelensky [id number] Corbin Yelensky 08/22/2024 DO NOT USE Corbin Yelensky PAY AT TIME OF SERVICE PAY AT TIME OF SERVICE Corbin Yelensky 07/09/2022 PAY AT TOS Corbin Yelensky CORBIN CORBIN Corbin Yelensky Notes Date Note Type Note Provider Name and Address Organization Details Recorded Time 06/04/2022 text/html pt with foot injury diagnosed today - will allow injury to heal and then return for DOT physical GIORGIO CRUMP MD [address] [place], [address], [place] [facility] 06/04/2022 13:27:50 06/04/2022 text/html Foot/Ankle UCRep orted by PatientHPIFor associated symptoms, patient reportsswellingbut reportsno weakness,no numbness,no tingling,no redness,no warmth, andno ecchymosis. For location, patient reportsleft,lateral, andfoot. For problem, patient reportsswelling. For duration, patient reports1 days. For context, patient reportscannot identify. For aggravating factors, patient reportswalking. For alleviating factors, patient reportsrest. For previous injury, patient reportsno prior injury to affected body part. may have bumped it or something at work, not sure but is on his feet all the time. Started with pain yesterday morning when he woke up. Very painful to walk on - has to walk on heel. Took tylenol last night to help get to sleep but didn't help much. GIORGIO CRUMP MD [address] [place], [address], [place] [facility] 06/04/2022 13:20:21 09/13/2023 text/html Shortness of BreathReported by Patient 37 yo male c/o SOB, wheeze and cough X 1 dSx have resolved but started last PM at work following inhaling chemical nad lasted about 10 h+ cough and wheeze+ cough productive of yellow mucous+ vomiting He has had similar following inhalation of chemicals at work in the past No CPendorsed chest tightness and SOB/DOEno rash no f/cnon smokerno vapingno h/o asthma or known allergies NO Sx currentlyROS as noted in the HPI Fish Abdi, DO [address] [place], [address], [place] - [facility] 09/13/2023 17:19:19
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
--- OUTSIDE RECORDS SUMMARY | 2025-05-14 12:39 | XMS_ITS | Encounter Summary ---
Author Organization [email or web address] Address [address] [place] [address] Care Team Providers Care Knot Saw Operator Name Role Phone Farrah Ortiz KORI Primary Care Provider [phone] Encounter Details Date Type Department Care Team (Latest Contact Info) Description 05/14/2025 Travel Social History Tobacco Use Types Packs/Day [...] AM EDT documented as of this encounter Plan of Treatment Not on file documented as of this encounter Visit Diagnoses Not on filedocumented in this encounter Additional Health Concerns Assessment Noted Time PHQ-9 Depression Total Score: 1 03/26/20 9:01 AM EDT documented as of this encounter Care Teams Knot Saw Operator Relationship Specialty Start Date End Date Farrah Otriz FNP [address] [place] [phone] PCP - General Family Medicine 03/26/25 documented as of this encounter
[2025-05-14 14:14] LABS: Appearance Urine Clear; Glucose Urine UA Negative (Negative); PH 5.5 (5.0-9.0); Specific Gravity - Urine 1.020 (1.005-1.025)
== END 2025-05-14 12:00 | disposition home or self-care (01) ==
LOC: HO.CHCLDS 11:59
PROVIDERS: Visit Provider Registered Nurse
DX: R31.9 Hematuria, unspecified (principal)
CPT/HCPCS: 81001

== ENCOUNTER → 2025-05-19 11:12 | Outpatient (BNVA) | payer OTHER, SELFPAY | PROVIDERS: PCP Registered Nurse; Visit Provider Emergency Medicine | DX: M54.2 Cervicalgia (principal); T75.4XXD Electrocution, subsequent encounter; W86.1XXD Exposure to industrial wiring, appliances and electrical machinery, subsequent encounter | CPT/HCPCS: 99214 ==

== ENCOUNTER 2025-05-24 05:48 | Day surgery (SDC) | payer BC, SELFPAY ==
[2025-05-18 09:40] VITALS: BMI 28.2
[2025-05-24] VITALS (8 sets, daily range): BP systolic 99–124; BP diastolic 55–79; PULSE 50–83; RESP 12–20; TEMP 36.1–36.9; O2SAT 92–98; BMI 28.6
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
[2025-05-24] MEDS: Lactated Ringers 1,000 ML 100 ML IVCONT (06:29)
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
--- NOTE | 2025-05-24 08:26 | W.PM.OPN ---
Operative Note Operative Note Date of Service: 05/24/25 Narrative: Preoperative diagnosis: incarcerated ventral periumbilical hernia Postoperative diagnoses: same Procedure performed: exploratory laparoscopy, lysis of adhesions, repair of ventral hernia with mesh. Surgeon: Milton Berry MD [employer]ty Manufacturing Supervisor: DANA Mckinney Findings: approximate 3 cm fascial defect in the region of the umbilicus containing incarcerated preperitoneal fatty tissue The patient is brought to the operating room and placed supine on the operating table. The arms and legs percussion appropriately and Venodyne boots were cycled. General anesthesia was initiated the patient's abdomen was prepped in the standard sterile fashion. Approximately 20 cc of Marcaine with epinephrine were then infused and soft tissue in the left subcostal region of the patient's abdomen. Through this locally anesthetize site a stab incision was created and a 5 mm trocar port was placed into the abdomen with the optical axis technique. CO2 gas was insufflated. Once the intra-abdominal pressures reached approximately 15 mmHg the intra-abdominal contents were surveyed. There was no evidence of injury from placement of either the local anesthetic or laparoscopic trocar port. Two more ports were then placed in the right subcostal region and the left lower quadrant. There were a 12 mm port and 5 mm port respectively. We then turned our attention to the periumbilical region. It is evident that the patient had hernia with incarcerated preperitoneal fatty tissue in the area. This was taken down with the Thunderbeat device. This revealed approximate 3 cm round fascial defect in the periumbilical area that had contained incarcerated preperitoneal fatty tissue. No other fascial defects were encountered. For repair we chose a 6 cm round Ventralex mesh. It was dipped and vancomycin irrigation. The straps were cut at the base and a long Polysorb tie was affixed to the center of the strap Stacey. It was then delivered into the patient's abdominal cavity. An Endoclose needle was passed through the center of the fascial defect use cigarettes for long time. This was then used to. She had the mesh up to the anterior abdominal wall. The mesh was circumferentially tacked with a capture device. All the tests were deeply placed with no folding wrinkling kinking or migration of the mesh. Final laparoscopic surveillance revealed no evidence of hemorrhage or visceral injury. The pneumoperitoneum was released the trocar ports were removed without difficulty. All the skin incisions were closed with 4-0 Monocryl in a buried subcuticular fashion. Steri-Strips and sterile occlusive dressings were applied. The patient tolerated procedure well, was recovered from anesthesia and taken to the recovery room in good condition. The sponge instrument needle counts were correct in the case and I discussed that the cells case with the patient afterward.
== END 2025-05-24 10:35 | disposition home or self-care (01) ==
PROVIDERS: PCP Registered Nurse; Visit Provider Surgery
PROC: (CPT 49592; principal; 2025-05-24 07:30)
DX: K43.6 Other and unspecified ventral hernia with obstruction, without gangrene (principal); R10.11 Right upper quadrant pain; M79.2 Neuralgia and neuritis, unspecified; Z79.899 Other long term (current) drug therapy; Z98.890 Other specified postprocedural states
CPT/HCPCS: 49592; C1781; C1889; J0131; J0690; J1100; J1171; J2003; J2405; J2704; J3010; J3374

== ENCOUNTER → 2025-05-24 05:48 | Outpatient (BNV) | payer BC, SELFPAY | PROVIDERS: PCP Registered Nurse; Visit Provider Surgery | DX: K43.9 Ventral hernia without obstruction or gangrene (principal) | CPT/HCPCS: 49594 ==

== ENCOUNTER 2025-06-03 10:18 | Outpatient (AMB) | payer BC, SELFPAY ==
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
[2025-06-03 10:33] VITALS: BP 110/60; BMI 28.5
== END 2025-06-03 10:52 | disposition home or self-care (01) ==
LOC: HO.HGS 10:19
PROVIDERS: PCP Registered Nurse; Visit Provider Physician Assistant Surgical
DX: Z98.890 Other specified postprocedural states (principal); Z87.19 Personal history of other diseases of the digestive system; K43.9 Ventral hernia without obstruction or gangrene
CPT/HCPCS: 99213

== ENCOUNTER 2025-06-21 13:42 | Outpatient (RCR) | payer OTHER, SELFPAY ==
[2025-02-18 07:01] VITALS: BP 112/76; PULSE 72; O2SAT 97
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
== END 2025-06-21 15:24 | disposition home or self-care (01) ==
LOC: HO.PT 13:42
PROVIDERS: Absent Provider Emergency Medicine; Visit Provider Physician Assistant Medical
DX: M54.2 Cervicalgia (principal); T75.4XXD Electrocution, subsequent encounter; W86.1XXD Exposure to industrial wiring, appliances and electrical machinery, subsequent encounter
CPT/HCPCS: 95992; 97035; 97110; 97140; 97162; 97164; 97530